=== PATIENT | female | born 2000 | race Caucasian/White ===

== ENCOUNTER 2021-09-01 05:44 | Inpatient (IN) ==
[2021-09-01] MEDS ORDERED: MEPERIDINE 50 MG/1 ML VIAL IV PRN ×2 (05:54→10:32)
[2021-09-01] MEDS ORDERED: METHYLERGONOVINE 0.2 MG/1 ML AMP IM PRN (05:54)
[2021-09-01] MEDS ORDERED: TRANEXAMIC ACID 1,000 MG in SODIUM CHLORIDE 0.9% 100 ML IV PRN (05:54)
[2021-09-01] MEDS ORDERED: miSOPROStoL 200 MCG TABLET RECTAL PRN (05:54)
[2021-09-01] MEDS ORDERED: ONDANSETRON 4 MG/2 ML VIAL IV PRN ×2 (05:54→17:54)
[2021-09-01] MEDS ORDERED: OXYTOCIN/LR 20 UNIT/1,000 ML BAG IV ONE ×2 (05:54→17:54)
[2021-09-01] MEDS ORDERED: LACTATED RINGERS 500 ML IV PRN (05:54)
[2021-09-01] MEDS ORDERED: CARBOPROST TROMETHAMINE 250 MCG/ML AMP IM PRN (05:54)
[2021-09-01] MEDS ORDERED: BUTORPHANOL 1 MG/ML VIAL IV PRN (05:54)
[2021-09-01] MEDS ORDERED: ACETAMINOPHEN 325 MG TABLET PO PRN ×2 (05:54→17:54)
[2021-09-01] MEDS ORDERED: BUTORPHANOL 2 MG/ML VIAL IV PRN (05:54)
[2021-09-01] MEDS ORDERED: LACTATED RINGERS 1,000 ML IV SCH (06:00)
[2021-09-01] MEDS ORDERED: OXYTOCIN/LR 20 UNIT/1,000 ML BAG IV SCH (06:00)
[2021-09-01 06:22] LABS: Basophils % 0.2 % (0.0-0.8); Eosinophils # 0.2 10*3/uL (0.0-0.87); Eosinophils % 1.7 % (0.00-10.9); Hematocrit 34.8 VOL% (35.7-47.0); Hemoglobin 11.3 GM/DL (12.0-16.0); Immature Granulocytes Absolute 0.26 #; Lymphocytes # 2.6 10*3/uL (1.4-4.0); Lymphocytes % 20.1 % (21.3-54.2); Mean Corpuscular HGB Conc 32.5 GM/DL (32-36); Mean Corpuscular Volume 87.2 FL (87-102); Mean Platelet Volume 11.2 FL (9.6-12.0); Monocytes # 1.1 10*3/uL (0.11-0.8); Monocytes % 8.3 % (1.7-12.7); Neutrophils % 67.7 % (38.7-73.9); Platelet Count 273 T/CUMM (130-400); Red Blood Count 3.99 MC/CUMM (3.8-5.5); Red Cell Distribution Width 16.5 % (9.3-17.3)
[2021-09-01 07:27] LABS: Alanine Aminotransferase 20 U/L (13-56); Albumin 2.6 G/DL (3.4-5.0); Alkaline Phosphatase 161 U/L (45-117); Aspartate Amino Transferase 23 U/L (0-37); Bilirubin,Total < 0.39 MG/DL (0.20-1.00); Blood Urea Nitrogen 6 MG/DL (7-18); Calcium 8.6 MG/DL (8.5-10.1); Carbon Dioxide 19 MMOL/L (21-32); Chloride 109 MMOL/L (98-107); Estimated Glom Filtration Rate 152 ML/MIN; Glucose 93 MG/DL (74-106); Osmolality,Calculated 267.1 MOS/KG (273-304); Potassium 3.7 MMOL/L (3.5-5.1); Sodium 135 MMOL/L (136-145); Total Protein 6.1 G/DL (6.4-8.2)
[2021-09-01] MEDS ORDERED: ePHEDrine 50 MG/ML VIAL IV PRN (12:45)
[2021-09-01] MEDS ORDERED: diphenhydrAMINE 50 MG/1 ML VIAL IV PRN ×2 (12:45)
[2021-09-01] MEDS ORDERED: FAMOTIDINE 20 MG/2 ML VIAL IV ONE (12:45)
[2021-09-01] MEDS ORDERED: PROMETHAZINE 25 MG/1 ML VIAL IM ONE (12:45)
[2021-09-01] MEDS ORDERED: NALOXONE 0.4 MG/ML VIAL IV PRN (12:45)
[2021-09-01] MEDS ORDERED: hydrOXYzine HCL 25 MG/1 ML VIAL IM PRN (12:45)
[2021-09-01] MEDS ORDERED: LACTATED RINGERS 1,000 ML IV ONE (12:45)
[2021-09-01] MEDS ORDERED: CITRIC ACID/SODIUM CITRATE 30 ML UDCUP PO ONE (12:45)
[2021-09-01] MEDS ORDERED: fentaNYL 2 MCG/ROPIV 0.2% EPID 100 ML EPIDURAL SCH (13:00)
[2021-09-01 15:09] LABS: Glucose,Urine (UA) Negative (Negative); Ketones,Urine 40 mg/dL (Negative); Mucus,Urine Occasional /LPF (Occasional); Protein,Urine Negative (Negative); RBC,Urine <1 /HPF (0-4); Urine Appearance Clear (Clear); Urine Color Yellow (Yellow)
[2021-09-01 15:10] LABS: Bilirubin,Urine Negative (Negative); Blood, Urine Negative (Negative); Nitrite,Urine Negative (Negative); Urine Urobilinogen 0.2 eU/dL (<2.0)
[2021-09-01] MEDS ORDERED: miSOPROStoL 200 MCG TABLET ONE (15:29)
[2021-09-01] MEDS ORDERED: TRANEXAMIC ACID 1,000 MG/10 ML VIAL ONE (15:29)
[2021-09-01] MEDS ORDERED: METHYLERGONOVINE 0.2 MG/1 ML AMP ONE (15:30)
[2021-09-01] MEDS ORDERED: CARBOPROST TROMETHAMINE 250 MCG/ML AMP IM ONE (15:30)
[2021-09-01 17:48] LABS: Cord Venous Blood HCO3 22.4 MMOL/L; Cord Venous Blood PCO2 36.3 MMHG; Cord Venous Blood PO2 33.3
[2021-09-01] MEDS ORDERED: DIPH/TET/ACEL PERT BOOSTER VACCINE 0.5 ML VIAL IM ONE (17:54)
[2021-09-01] MEDS ORDERED: BISACODYL 10 MG SUPP RECTAL PRN (17:54)
[2021-09-01] MEDS ORDERED: LANOLIN 50% CREAM 0.3 OZ TUBE TOP PRN (17:54)
[2021-09-01] MEDS ORDERED: HYDROCORTISONE 2.5% RECTAL CREAM 30 GM TUBE TOP PRN (17:54)
[2021-09-01] MEDS ORDERED: WITCH HAZEL PADS 100/JAR TOP PRN (17:54)
[2021-09-01] MEDS ORDERED: BENZOCAINE 20%/MENTHOL 0.5% SPRAY 56 GM CAN TOP PRN (17:54)
[2021-09-01] MEDS ORDERED: RHO(D) IMMUNE GLOBULIN 300 MCG SYRINGE IM ONE (17:54)
[2021-09-01] MEDS ORDERED: MEASLES/MUMPS/RUBELLA VACCINE 0.5 ML VIAL SUBCUT ONE (17:54)
[2021-09-01] MEDS ORDERED: ACETAMINOPHEN/CODEINE 300-30 MG TABLET PO PRN ×2 (17:56)
[2021-09-01] MEDS: IBUPROFEN 800 MG TABLET PO PRN (21:32)
[2021-09-01] MEDS: DOCUSATE SODIUM 100 MG CAPSULE PO SCH (21:32)
[2021-09-02 06:07] LABS: Basophils # 0.1 10*3/uL (0.0-0.2); Basophils % 0.3 % (0.0-0.8); Eosinophils # 0.2 10*3/uL (0.0-0.87); Hematocrit 33.5 VOL% (35.7-47.0); Hemoglobin 10.5 GM/DL (12.0-16.0); Immature Granulocytes % 1.4 %; Immature Granulocytes Absolute 0.28 #; Lymphocytes # 3.6 10*3/uL (1.4-4.0); Lymphocytes % 18.7 % (21.3-54.2); Mean Corpuscular HGB Conc 31.3 GM/DL (32-36); Mean Corpuscular Volume 90.3 FL (87-102); Mean Platelet Volume 10.7 FL (9.6-12.0); Monocytes # 1.5 10*3/uL (0.11-0.8); Monocytes % 7.7 % (1.7-12.7); Neutrophils % 70.9 % (38.7-73.9); Platelet Count 245 T/CUMM (130-400); Red Blood Count 3.71 MC/CUMM (3.8-5.5); Red Cell Distribution Width 16.7 % (9.3-17.3); White Blood Count 19.4 T/CUMM (4-12)
[2021-09-02] MEDS: DOCUSATE SODIUM 100 MG CAPSULE PO SCH ×2 (08:05→20:54)
[2021-09-02] MEDS: MULTIVITAMIN (PRENATAL) TABLET PO SCH (08:05)
[2021-09-02] MEDS: IBUPROFEN 800 MG TABLET PO PRN (20:53)
[2021-09-03 08:30] VITALS: BP 107/55
[2021-09-03] MEDS: DOCUSATE SODIUM 100 MG CAPSULE PO SCH (09:04)
[2021-09-03] MEDS: MULTIVITAMIN (PRENATAL) TABLET PO SCH (09:04)
== END 2021-09-03 11:55 | disposition home or self-care (01) | DRG 807 ==
LOC: N.LD 05:44 → N.OB 20:45
PROVIDERS: ADMIT Obstetrics & Gynecology; ATTEND Obstetrics & Gynecology